=== PATIENT | female | born 1995 | race Caucasian/White ===

== ENCOUNTER 2018-08-15 19:09 | Observation (INO) ==
[2018-08-15] MEDS ORDERED: NS 1,000 ML ONE (23:34)
[2018-08-15] MEDS ORDERED: NS 1,000 ML IV ONE (23:48)
[2018-08-15] MEDS ORDERED: DEMEROL IV ONE (23:48)
--- NOTE | 2018-08-16 02:36 | PROVIDER DOCUMENTATION ---
This chart was entered by Amirah Plascencia Scribe, acting as scribe for Tanisha Conrad MD. HPI-Female /OB/Breast - General Chief Complaint: Complaint Stated Complaint: EXTREMITY PAIN Time Seen by Provider: 08/15/18 21:04 Source: reports: patient Allergies/Adverse Reactions: Patient Allergies Allergy/AdvReac Type Severity Reaction Status Date / Time Sulfa (Sulfonamide Allergy Intermediate HIVES Verified 08/07/18 08:50 Antibiotics) Home Medications: Home Medication List Medication Instructions Recorded Confirmed Last Taken Type Ibuprofen [Motrin] 800 mg PO TID #30 tab 08/09/18 Unknown Rx - History of Present Illness-Female /OB Nature of Presenting Problem: 23 y/o female presents to ED with headache, diarrhea, and nausea onset 1 week ago. Pt reports she is 8 days . Pt states she was offered a blood patch before she was discharged from OB, but declined. Pt denies fever, chills, or incontinence. Pt reports she does not have pain while lying down. Pt is alert and oriented. Does patient report she is ?: No (8 days ) Location of complaint: reports: other (head) Radiation: reports: none Quality of Pain: reports: aching Severity in ED: reports: mild, moderate Onset/Duration: reports: 1 week ago Timing: reports: still present Context/Activities at Onset: reports: none Vaginal Symptoms: reports: no symptoms Vaginal Bleeding Amount: None Urinary Symptoms: reports: no symptoms Related Symptoms: reports: no symptoms Leakage of Fluid: none Modifying Factors: improves with: lying down Associated Symptoms: reports: diarrhea, nausea, other (headache) Similar Symptoms Previously?: No Recently seen or treated by another doctor?: Yes (discharged from OB 8 days ago) Review of Systems - Adult - REVIEW OF SYSTEMS - ADULT Constitutional: denies: chills, fever Eyes: reports: no symptoms reported Ears, Nose, Mouth & Throat: reports: no symptoms reported Cardiovascular: denies: chest pain, palpitations Respiratory: denies: cough, shortness of breath Gastrointestinal: reports: diarrhea, nausea. denies: abdominal pain, vomiting Genitourinary: denies: flank pain, incontinence Musculoskeletal: denies: back pain, joint pain Integumentary: reports: no symptoms reported Neurological: reports: headache/migraines, seizure. denies: dizziness/vertigo Psychiatric: reports: no symptoms reported Endocrine: reports: no symptoms reported Hematologic/Lymphatic: reports: no symptoms reported Allergic/Immunologic: reports: no symptoms reported All Other Systems: Reviewed and Negative Past History - Adult - PAST MEDICAL HISTORY-ADULT Review of Records: reports: Old Records Reviewed, Nursing Assessment Review, Medications Reviewed Major Childhood Illnesses: reports: denies history Cardiovascular: reports: denies history Respiratory: reports: denies history Gastrointestinal: reports: denies history Obstetrical/Gynecological: reports: denies history Genitourinary: reports: denies history Musculoskeletal: reports: denies history Neurological: reports: denies history Endocrine/Immune: reports: denies history Other Conditions: reports: denies history - PRIOR SURGERIES/PROCEDURES Surgical/Procedure History: reports: none, tonsillectomy - PRIOR HOSPITALIZATIONS Prior Hospitalizations: reports: none - IMMUNIZATION STATUS Childhood Immunizations: See Nurse Assessment Flu Vaccine: See Nurse Assessment - FAMILY HISTORY Family History: reviewed, not pertinent - SOCIAL HISTORY Smoking: greater than 1 pack/day Provider spent 3-5 mins advising pt. on dangers of tobacco.: Discussed manners to quit use, and f/u contacts for add'l counseling. Substance Use: none/never Alcohol Use Frequency: never Living Situation: family Physical Exam-General - PHYSICAL EXAM-ADULT Initial Vital Signs Reviewed: Yes - CONSTITUTIONAL General Appearance: appears well, alert, no apparent distress - EYES Eyes: PERRL/EOMI, pink conjunctivae - HEAD, EARS, NOSE, MOUTH & THROAT HENMT: normocephalic/atraumatic, moist mucous membranes, normal ENT inspection - NECK Neck: non-tender, full range of motion, supple, normal inspection, other (no neck stiffness) - RESPIRATORY Respiratory: chest non-tender, lungs clear, normal breath sounds - CARDIOVASCULAR Cardiovascular: normal peripheral pulses, regular rate, rhythm - GASTROINTESTINAL (ABDOMEN) Abdominal Exam: normal bowel sounds, non tender, soft - MUSCULOSKELETAL Back Exam: normal inspection, no CVA tenderness, no vertebral tenderness Extremity: normal range of motion, non-tender, normal gait - SKIN Integumentary: normal color, warm/dry - NEUROLOGIC Neurologic: welding machine setter II-XII nml as tested, grossly normal, no motor/sensory deficits - PSYCHIATRIC Psych/Mental Status: normal mood/affect, normal thought content, normal thought process Progress - PLAN OF CARE/RESULTS Progress/Plan/Lab Results: Vital Signs - 8 hr 08/15/18 19:17 08/16/18 00:11 08/16/18 02:13 Temperature 98 F 98.2 F Pulse Rate 68 55 L 60 Respiratory Rate 18 18 16 Blood Pressure 143/90 153/93 124/103 O2 Sat by Pulse Oximetry 99 96 98 Orders Category Date Time Status Admit - [facility] Routine AdmDCTranf 08/16/18 02:02 Active 0.9% Sodium Chloride Inj [Ns] 1,000 ml Med 08/15/18 23:34 Discontinued .ROUTE As directed 0.9% Sodium Chloride Inj [Ns] 1,000 ml Med 08/15/18 23:48 Discontinued IV 999 mls/hr Meperidine [Demerol] Med 08/15/18 23:48 Discontinued 50 mg IV NOW ONE - CONSULTS/PCP/HOSPITALIST Notification #1 *Consult/PCP/Hospitalist*: Dr. Josiah Alfonso Discussed: 21:00 Reason/Comments: Blood patch Consult Disposition: Will see in ED #2 Consult: Dr. Alison Alfonso Discussed: 01:45 Consult Disposition: Admit Departure - Departure Date of Disposition Decision: 08/16/18 Time of Disposition Decision: 02:34 DIAGNOSIS: Bradycardia, Spinal headache Disposition: ADMITTED INPATIENT 09 Certified Medical Emergency: Emergent Condition: Stable Referrals and Follow-Ups: None,PCP [Primary Care Provider] - Discharge Education: Steps to Quit Smoking, [id number] - Critical Care Note This patient required my direct & personal management of CC.: No Attestation - Physician/ SUZANNE Attestation Patient care was provided by Advanced Practice Provider:: No The physician spent face to face time with patient:: Yes Advanced Practice Provider documentation review:: Supervising physician onsite and consulted in the evaluation and care of this patient. The physician did have a face to face encounter with the patient. This chart was documented by the indicated scribe, (Amirah Plascencia, Anam) and accurately reflects the services I performed and decisions made by me, Tanisha Conrad MD, as attested by the provider's signature.
[2018-08-16] MEDS ORDERED: NS 1,000 ML IV ONE (07:08)
[2018-08-16 07:28] LABS: BASO# 0.02 X1000 (0.0-0.2); BASO% 0.2 % (0.0-0.8); EOS# 0.11 X1000 (0.0-0.7); EOS% 1.3 % (0.0-10.0); HEMATOCRIT 38.3 % (37.0-47.0); HEMOGLOBIN 12.9 g/dL (12.0-16.0); IMM GRAN# 0.02 X1000 (0.0-0.04); IMM GRAN% 0.2 % (0.0-0.5); LYMPH# 2.59 X1000 (1.2-3.4); LYMPH% 30.9 % (20.5-51.1); MCH 30.4 PG (27-31); MCHC 33.7 g/dL (33-37); MCV 90.3 FL (81-99); MONO# 0.52 X1000 (0.11-0.59); MONO% 6.2 % (1.7-9.3); MPV 9.6 FL (7.4-10.4); NEUT# 5.13 X1000 (1.4-6.5); NEUT% 61.2 % (42.2-75.2); PLT 227 X1000 (130-400); RBC 4.24 XMIL (4.2-5.4); RDW 13.5 % (11.5-14.5); WBC 8.39 X1000 (4.8-10.8)
[2018-08-16 07:44] VITALS: BP 115/84
[2018-08-16 07:50] LABS: AGAP 10; ALBUMIN 3.5 g/dL (3.5-5.0); ALKALINE PHOSPHATASE 109 U/L (32-104); BUN 14 mg/dL (8-22); CALCIUM 7.9 mg/dL (8.8-10.2); CHLORIDE 109 mmol/L (98-107); COSMO 278; CREATININE 0.6 mg/dL (0.5-0.9); ESTIMATED GFR > 60; GLUCOSE 103 mg/dL (70-104); GOT 13 U/L (10-30); GPT 16 U/L (10-36); POTASSIUM 3.6 mmol/L (3.5-5.1); SODIUM 139 mmol/L (136-145); TCO2 20 mmol/L (25-35); TOTAL PROTEIN 6.4 g/dL (6.3-8.3)
[2018-08-16 08:31] LABS: INR 1.05; PROTIME 14.2 Seconds (11.0-16.0)
[2018-08-16] MEDS ORDERED: NICODERM PATCH TD ONE (09:00)
[2018-08-16] MEDS ORDERED: PNEUMOVAX 23 IM ONE (10:00)
--- NOTE | 2018-08-16 14:23 | HISTORY AND PHYSICAL ---
ADMISSION DATE: 08/16/2018 DISCHARGE DATE: 08/16/2018 PRIMARY CARE PHYSICIAN: None. AUDIOVISUAL AIDS TECHNICIAN: Dr. Beltran CHIEF COMPLAINT: Headache, nausea. HISTORY OF PRESENT ILLNESS: Ms. Rodriguez is a 23-year-old female who is 8 days from a vaginal delivery and epidural, who presented to the ER last night with headache, nausea and diarrhea. She was offered a blood patch prior to her discharge from her delivery; however, she refused. She has not had any fever, chills, chest pain, lower extremity weakness or numbness. In the ER, she had a blood patch done by Dr. Bell and was given some Demerol. She was ambulating on evaluation to go home, and she did have a bit of dizziness and bradycardia with continued headache, so she was admitted for observation status. She denied any chest pain. Over the night, she did not have any acute issues. No syncope or chest pain. Her heart rate is always low, per her report. This morning, she continues to feel good. She has no lower extremity weakness. No loss of bladder or bowel continence. No chest pain. Her vitals are stable, so we will go ahead and discharge her home. PAST MEDICAL HISTORY: 1. Eight days from vaginal delivery. 2. Nicotine dependence. PAST SURGICAL HISTORY: She has had tonsillectomy and adenoidectomy. SOCIAL HISTORY: She smokes 1/2 pack to 1 pack a day of cigarettes. Denies drug or alcohol use. FAMILY HISTORY: Noncontributory. REVIEW OF SYSTEMS: A 14-point review of systems was obtained and found to be negative with the exception of the HPI. ALLERGIES: Sulfa. HOME MEDICATIONS: Ibuprofen 800 mg p.o. t.i.d. as needed, Zoloft 50 mg p.o. daily. PHYSICAL EXAMINATION: VITAL SIGNS: Blood pressure is 115/84, heart rate 66, respiratory rate 16, O2 saturation is 97% on room air, temperature is 98.3. GENERAL: Obese female lying in hospital bed, no acute distress. NEUROLOGICAL: Awake, alert and oriented. Follows commands. No focal deficits. HEENT: Head is atraumatic and normocephalic. Pupils are equal, round and reactive to light. Oral mucosa is moist. NECK: Trachea is midline. No JVD. CHEST: Clear to auscultation. CARDIOVASCULAR: Regular rate and rhythm. S1 and S2 noted. Very soft 1/6 murmur noted. GASTROINTESTINAL: Soft, nondistended and nontender. Bowel sounds active. EXTREMITIES: No edema. Pulses 1+ bilaterally. BACK: Band-Aid over the lumbar spine entry area. No sign of infection. DIAGNOSTIC DATA: WBC is 8.39, hemoglobin 12.9, hematocrit 38.3, platelet count 227. INR is 1.05. Sodium is 139, potassium 3.6, chloride 109, CO2 is 20, anion gap is 10, BUN is 14, creatinine 0.6, glucose 103, calcium 7.9, total bilirubin 0.2, AST is 13, ALT is 16, alkaline phosphatase 109. Albumin 3.5. ASSESSMENT AND PLAN: 1. Spinal headache, status post blood patch. Stable. The patient's symptoms have improved remarkably. She has no lower extremity deficits or complaints. No loss of bowel or bladder function. 2. Status post vaginal delivery 8 days ago. She will follow up with Dr. Beltran. 3. Nicotine dependence. We have advised the patient to quit smoking. The nicotine patch have been prescribed, and we have completed nicotine cessation education. The patient is discharged home. Dictated by JOSI Sears for Familia Rosas MD cc: JOSI Sears MD
--- NOTE | 2018-08-16 18:19 | HISTORY AND PHYSICAL ---
ADDENDUM: Patient seen and examined by me. Full note dictated and discussed with nurse practitioner. The patient presented to the hospital with a 1-week onset of headache, nausea and vomiting. She notes that her headache was better when she was lying flat. She just recently delivered a baby and had a spinal tap. She had a blood patch while in the ER. Notes that her headache is better. Her blood pressures were noted to be elevated. Her notes that she never has high blood pressure, and this is likely related to her headache. The patient will be admitted to the hospital. Her heart rate is low, but nothing of major concern. Her heart rate is in the upper 40s to low 50s. She and her both note that her heart rate is always in the low 50s. We will admit her to the hospital for observation and will follow. cc: Familia Rosas MD
--- NOTE | 2018-08-17 06:29 | DISCHARGE SUMMARY ---
ADMISSION DATE: 08/16/2018 DISCHARGE DATE: 08/16/2018 DISCHARGE DIAGNOSES: 1. Headache secondary to spinal tap, resolved. 2. Labile hypertension, resolved. Blood pressure is 113 systolic on discharge. 3. . 4. Bradycardia, asymptomatic. CONSULTATIONS: None. PROCEDURES: None. BRIEF HOSPITAL COURSE: The patient is a 23-year-old female who was admitted to the hospital with a headache secondary to her spinal tap. Thankfully, this headache has resolved. She is feeling better. Blood pressures are improved. DISPOSITION: Patient will be discharged home. Discussed with her to continue to check her blood pressure at home occasionally, and should it be elevated, she will need to follow up with her primary care to be treated. However, currently would not start on blood pressure medications as her blood pressures are normal. cc: Familia Rosas MD
== END 2018-08-16 11:00 | disposition home or self-care (01) ==
LOC: P.ED 19:09 → P.MEDSURG 19:09
PROVIDERS: ATTEND Family Medicine
CPT/HCPCS: 80053; 85025; 85610; 93005; 96374; 99285; A9270; J2175; J7030